=== PATIENT | female | born 1975 | race Caucasian/White ===

== ENCOUNTER 2016-08-30 14:16 | Emergency (ER) | payer OTHER ==
[~2016-08-30] VITALS: Ht 162.6 cm; Wt 65.8 kg
[~2016-08-30 14:16] MED LIST: A/B OTIC 54 MG/15 ML OT; FIORICET 325 MG1 TAB PO; NASONEX0.05 MG/Ac INH; PANTOPRAZOLE SO40 MG PO; PHENERGAN25 M1 PO; PREDNISONE50 MG PO; YAZ 3 MG-0.02 M1 TAB PO; ZITHROMAX Z-PA250 M1 PO; ZOFRAN4 M1 PO; ZOVIRAX400 MG PO
--- NOTE | 2016-08-30 14:37 | ED GENERAL ADULT ---
History of Present Illness General Chief Complaint: Upper Respiratory Sx/Fever Stated Complaint: UPPER RESPITORY ISSUE / SMITH Source: patient, family, old records Exam Limitations: no limitations Vital Signs & Intake/Output Vital Signs & Intake/Output Vital Signs Date Time Temp Pulse Resp B/P Pulse O2 O2 Flow FiO2 Ox Delivery Rate 08/30 1552 98.1 72 18 128/70 98 Room Air 08/30 1520 96 08/30 1422 97.7 73 20 134/88 98 Room Air ED Intake and Output 08/31 0000 08/30 1200 Intake Total 0 Output Total Balance 0 Intake, Oral 0 Patient 145 lb Weight Allergies Coded Allergies: shellfish derived (Severe, ANAPHYLAXIS 10/17/15) Penicillins (Intermediate, YEAST INFECTIONS 10/17/15) codeine (Intermediate, VOMITING 10/17/15) ibuprofen (GI ISSUES 08/30/16) Reconcile Medications Benzonatate 200 MG CAPSULE 1 CAP PO TID PRN cough Gabapentin 400 MG CAPSULE 1 CAP PO BID NEUROPATHY (Reported) Methylprednisolone. (Medrol) 4 MG TAB.DS.PK 1 DP PO AD breathing Pantoprazole Sodium 40 MG TABLET.DR 1 TAB PO DAILY GI (Reported) Sumatriptan Succinate (Imitrex) 50 MG TABLET 1 TAB PO AD PRN HEADACHE ( Reported) Triage Note: PT TO ED C/O URI S/S X 1 MONTH. PT HAS BEEN ON 2 ABX'S AND AN INHALER AND IS NOT FEELING BETTER. PT ALSO C/O HEADACHE. PT STATES SHE HAS "OCCIPITAL NEURALGIA" AND COUGHING EXACERBATES HER CONDITION. C/O STABBING PAIN TO HEAD. Triage Nurses Notes Reviewed? yes : No Patient currently breastfeeds: No HPI: PATIENT IS A 41-YEAR-OLD FEMALE PRESENTS COMPLAINING OF occipital headache and cough. Patient reports she has had a cough and chest congestion for approximately one month. Patient has been on azithromycin and ofloxacin with no improvement. Cough initially had sputum production, now patient reports that she feels chest congestion but she is not able to cough anything up. Patient has not had any chest imaging for her symptoms previously. Patient was placed on the left ofloxacin last week. Patient has been using albuterol and Mucinex with no improvement. Patient reports that the cough is causing her occipital neuralgia pain to exacerbate. Patient takes Topamax and sumatriptan which have not been providing any relief. Pain is a sharp pain consistent with her chronic headache pain exacerbated by cough. Patient denies fevers, chills, chest pain. (JR MATTA) Past History Travel History Traveled to [place] past 21 day No Medical History Any Pertinent Medical History? 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 No (JR MATTA) Review of Systems Review of Systems Constitutional: Denies: chills, fever. EENTM: Reports: nasal congestion. Respiratory: Reports: cough, short of breath, sputum production, wheezing. Cardiovascular: Denies: chest pain. GI: Denies: abdominal pain. Musculoskeletal: Reports: no symptoms. Skin: Reports: no symptoms. Neurological/Psychological: Reports: headache. Hematologic/Endocrine: Reports: no symptoms. Immunologic/Allergic: Reports: no symptoms. (JR MATTA) Physical Exam Physical Exam General Appearance: well developed/nourished, alert, awake Head: atraumatic, normal appearance Eyes: Bilateral: normal appearance, PERRL, EOMI. Ears, Nose, Throat: hearing grossly normal Neck: normal inspection, supple, full range of motion Respiratory: mild diffuse expiratory wheezing and congestion. Cardiovascular: regular rate/rhythm (no murmur) Back: normal inspection, normal range of motion Extremities: normal inspection, normal capillary refill, normal range of motion, no edema Neurologic/Psych: no motor/sensory deficits, awake, alert, oriented x 3, normal gait, normal mood/affect, pin cleaner II-XII nml as tested Skin: intact, normal color, warm/dry Lymphatic: no anterior cervical kelley Core Measures ACS in differential dx? No CVA/TIA Diagnosis: No Severe Sepsis Present: No Septic Shock Present: No (JR MATTA) Progress Differential Diagnoses I considered the following diagnoses in my evaluation of the patient: Bronchitis , pneumonia, postinfectious bronchospasm, CHF, pulmonary embolism, migraines, occipital neuralgia Plan of Care: Orders Procedure Date/time Status XRY-CHEST XRAY, PA AND LATERAL 08/30 1446 Active On re-exam patient reports improvement in breathing after nebulizer treatment and headache gradually improving. Headache is consistent with her previous headaches. Patient has had extensive outpatient testing regarding her headaches. No acute neurologic abnormalities. Labs and neuroimaging deferred. Results of x-ray discussed with patient. Appears stable for discharge and outpatient follow up. (JR MATTA) Diagnostic Imaging: Viewed by Me: Radiology Read. Discussed w/RAD: Radiology Read. Radiology Impression: PATIENT: MEEAT MONK PRESENT AGE: 41 PATIENT ACCOUNT NO: [id number] : 75 LOCATION: [facility] ORDERING PHYSICIAN: JR BRIAN SERVICE DATE: 08/30/16-1446 EXAM TYPE: RAD - XRY-CHEST XRAY, PA AND LATERAL EXAMINATION: XR CHEST CLINICAL INFORMATION: Cough and sputum production. COMPARISON: Chest x-ray 06/12/2014. TECHNIQUE: PA and lateral views of the chest were obtained. FINDINGS: The lungs are well-expanded and clear without focal airspace consolidation. No pleural effusions or pneumothoraces are identified. Cardiomediastinal contours are within normal limits. Soft tissues are unremarkable. No acute osseous abnormality is identified. IMPRESSION: No acute cardiopulmonary abnormality. DICTATED BY: HAKEEM RICHARDSON MD DATE/TIME DICTATED:08/30/161533 UNIFORM ATTENDANT:CASSANDRA DATE/TIME TRANSCRIBED:08/30/161533 CONFIDENTIAL, DO NOT COPY WITHOUT APPROPRIATE AUTHORIZATION. <Electronically signed in Other Vendor System> SIGNED BY: HAKEEM RICHARDSON MD 08/30/161537 Initial ED EKG: none (JR MATTA) Departure Departure Time of Disposition: 1546 Disposition: HOME OR SELF CARE Condition: Stable Clinical Impression Primary Impression: Bronchospasm Secondary Impressions: Occipital neuralgia Qualifiers: Laterality: unspecified laterality Qualified Code: M54.81 - Occipital neuralgia Referrals: DANNY HUFF (PCP/Family) Additional Instructions: Follow-up with your primary care provider within one week for further evaluation. Call in the morning for appointment. Return to the emergency department breathing worsening or worsening of symptoms. Departure Forms: Customer Survey General Discharge Information Prescriptions: Current Visit Scripts Methylprednisolone. (Medrol) 1 DP PO AD #1 DP Benzonatate 1 CAP PO TID PRN cough #30 CAP (JR MATTA) PA/SIGNALS ANALYST Co-Sign Statement Statement: ED Attending supervision documentation- [] I saw and evaluated the patient. I have also reviewed all the pertinent lab results and diagnostic results. I agree with the findings and the plan of care as documented in the PA's/SIGNALS ANALYST's documentation. [X] I have reviewed the ED Record and agree with the PA's/SIGNALS ANALYST's documentation. [] Additions or exceptions (if any) to the PAs/SIGNALS ANALYST's note and plan are summarized below: [] (BRANDT MORENO,MARISSA) Critical Care Note Critical Care Note Critical Care Time: non-applicable (JR MATTA)
[2016-08-30] MEDS ORDERED: GABAPENTIN400 M2 PO (14:49)
[2016-08-30] MEDS ORDERED: IMITREX50 M1 PO (14:49)
[2016-08-30] MEDS ORDERED: PANTOPRAZOLE SO40 M1 PO (14:50)
--- NOTE | 2016-08-30 15:38 | RADIOLOGY REPORT ---
EXAMINATION: XR CHEST CLINICAL INFORMATION: Cough and sputum production. COMPARISON: Chest x-ray 06/12/2014. TECHNIQUE: PA and lateral views of the chest were obtained. FINDINGS: The lungs are well-expanded and clear without focal airspace consolidation. No pleural effusions or pneumothoraces are identified. Cardiomediastinal contours are within normal limits. Soft tissues are unremarkable. No acute osseous abnormality is identified. IMPRESSION: No acute cardiopulmonary abnormality.
[2016-08-30] MEDS ORDERED: BENZONATATE200 M1 PO (15:46)
[2016-08-30] MEDS ORDERED: MEDROL4 M2 PO (15:46)
[2016-08-30 15:52] VITALS: BP 128/70
== END 2016-08-30 15:53 ==
LOC: ERH 14:16
DX: J98.01 Acute bronchospasm (principal); M54.81 Occipital neuralgia; Z87.891 Personal history of nicotine dependence
CPT/HCPCS: 1263; 96374; 96375; J1200; J1885; J2550; J2930

== ENCOUNTER 2016-10-20 10:50 | Emergency (ER) | payer OTHER ==
[~2016-10-20] VITALS: Ht 162.6 cm; Wt 65.8 kg
[~2016-10-20 10:50] MED LIST changes: +BENZONATATE200 M1 PO; +GABAPENTIN400 M2 PO; +IMITREX50 M1 PO; +MEDROL4 M2 PO; +PANTOPRAZOLE SO40 M1 PO
--- NOTE | 2016-10-20 11:26 | ED HEADACHE COMPLAINT ---
History of Present Illness General Chief Complaint: Headache Stated Complaint: NAUSEA, SMITH FOR 5 DAYS Source: patient, old records Exam Limitations: no limitations Vital Signs & Intake/Output Vital Signs & Intake/Output Vital Signs Date Time Temp Pulse Resp B/P Pulse O2 O2 Flow FiO2 Ox Delivery Rate 10/20 1251 97.7 68 18 125/73 98 Room Air 10/20 1206 Room Air 10/20 1109 96.4 89 18 141/90 100 Room Air Allergies Coded Allergies: shellfish derived (Severe, ANAPHYLAXIS 10/17/15) Beta-Blockers (Beta-Adrenergic Bloc (Intermediate, DROPS PRESSURE 10/20/16) Penicillins (Intermediate, YEAST INFECTIONS 10/17/15) codeine (Intermediate, VOMITING 10/17/15) ibuprofen (GI ISSUES 08/30/16) Reconcile Medications Eletriptan HBr (Relpax) 40 MG TABLET 1 TAB PO ONCE PRN HEADACHE MAY REPEAT 1 DOSE 2 HOURS AFTER INITIAL DOSE IF SYMPTOMS PERSIST Gabapentin 400 MG CAPSULE 1 CAP PO BID NEUROPATHY (Reported) Pantoprazole Sodium 40 MG TABLET.DR 1 TAB PO DAILY GI (Reported) Sumatriptan Succinate (Imitrex) 50 MG TABLET 1 TAB PO AD PRN HEADACHE ( Reported) Triage Note: C/O HEADACHE X 5 DAYS. STATES SHE HAS OCCIPITAL NEURALGIA AND HAS OCCASIONAL FLARE-UPS. HAS APPOINTMENT WITH HER PMD TOMORROW. Triage Nurses Notes Reviewed? yes : No Patient currently breastfeeds: No HPI: Patient is a 41-year-old female presents complaining of a pressure/pounding headache for the past 5 days. Headache is consistent with patient's previous headaches which she has had extensive workup and was diagnosed with occipital neuralgias. Patient has taken her Imitrex today with no improvement. Headaches is currently severe, worsens with movement of her head and right upper extremity. Intermittent nausea. 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 (JORGE ALBERTO BRIAN,JR) Past History Travel History Traveled to [place] past 21 day No Medical History Any Pertinent Medical History? 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 No (JR MATTA) Review of Systems Review of Systems Constitutional: Denies: chills, fever. Eyes: Denies: blindness, blurred vision. Ears, Nose, Throat, Mouth: Reports: no symptoms. Respiratory: Denies: cough, short of breath. Cardiovascular: Denies: chest pain. Gastrointestinal/Abdominal: Reports: nausea. Denies: abdominal pain. Genitourinary: Reports: no symptoms. Musculoskeletal: Reports: neck pain. Skin: Reports: no symptoms. Neurological/Psychological: Reports: see HPI. Hematologic/Endocrine: Reports: no symptoms. Endocrine: Reports: no symptoms. Immunologic/Allergic: Reports: no symptoms. (JR MATTA) Physical Exam Physical Exam General Appearance: well developed/nourished, alert, awake Head: atraumatic, normal appearance Eyes: Bilateral: normal appearance, PERRL, EOMI. Ears, Nose, Throat: normal pharynx, normal ENT inspection, hearing grossly normal Neck: normal inspection, supple, full range of motion, mild paraspinal tenderness Respiratory: normal breath sounds, chest non-tender, no respiratory distress, lungs clear Cardiovascular: regular rate/rhythm Back: normal inspection, normal range of motion Extremities: normal inspection, normal capillary refill, normal range of motion, no edema Psychiatric: awake, alert, oriented x 3 Cranial Nerves: normal hearing, normal speech, PERRL Coordination/Gait: normal gait Motor/Sensory: no motor/sensory deficits Skin: intact, normal color, warm/dry Lymphatic: no anterior cervical kelley Core Measures Severe Sepsis Present: No Septic Shock Present: No (JR MATTA) Progress Differential Diagnosis: cluster SMITH, IC mass/tumor, intracranial Hem., meningitis , migraine SMITH, musculoskeletal pain, sinusitis, subarach. Hem., tension SMITH, temporal arteritis, viral cephalgia, occipital neuralgia Plan of Care: Current Medications Sig/Elizabeth Start time Last Medication Dose Stop Time Status Admin Diphenhydramine HCl 25 MG ONCE ONE 10/20 1200 AC (Benadryl) 10/20 1201 Ketorolac 30 MG ONCE ONE 10/20 1200 UNVr Tromethamine 10/20 1201 (Toradol) Methylprednisolone 125 MG ONCE ONE 10/20 1200 AC (Solu Medrol) 10/20 1201 Promethazine HCl 25 MG ONCE ONE 10/20 1200 AC (Phenergen) 10/20 1201 10/20/2016 1:14:15 PM: Patient reports that symptoms are gradually improving. Patient has an appointment with her primary care provider tomorrow morning. Requesting a prescription for Relpax. Discussed with patient the interaction of Relpax and her Imitrex. Patient reports that she has not taken her Imitrex since Wednesday. (JR MATTA) Departure Departure Time of Disposition: 1314 Disposition: HOME OR SELF CARE Condition: Stable Clinical Impression Primary Impression: Occipital neuralgia Qualifiers: Laterality: unspecified laterality Qualified Code: M54.81 - Occipital neuralgia Referrals: TOMI MENA,DANNY Matthews (PCP/Family) Additional Instructions: Follow up with your primary care provider tomorrow as scheduled. Return to the emergency department if worsening of symptoms Departure Forms: Customer Survey General Discharge Information Prescriptions: Current Visit Scripts Eletriptan HBr (Relpax) 1 TAB PO ONCE PRN HEADACHE #15 TAB MAY REPEAT 1 DOSE 2 HOURS AFTER INITIAL DOSE IF SYMPTOMS PERSIST (JR MATTA) PA/BUSINESS CONTROL MANAGER Co-Sign Statement Statement: ED Attending supervision documentation- [] I saw and evaluated the patient. I have also reviewed all the pertinent lab results and diagnostic results. I agree with the findings and the plan of care as documented in the PA's/BUSINESS CONTROL MANAGER's documentation. [X] I have reviewed the ED Record and agree with the PA's/BUSINESS CONTROL MANAGER's documentation. [] Additions or exceptions (if any) to the PAs/BUSINESS CONTROL MANAGER's note and plan are summarized below: [] (CRISTIAN MORENO,TERESA Gamez)
[2016-10-20 12:51] VITALS: BP 125/73
[2016-10-20] MEDS ORDERED: RELPAX40 M1 PO (13:17)
== END 2016-10-20 13:35 ==
LOC: ERH 10:50
DX: M54.81 Occipital neuralgia (principal); R11.0 Nausea
CPT/HCPCS: 96374; 96375; J1200; J1885; J2550; J2930

== ENCOUNTER 2016-11-05 09:22 | Emergency (ER) | payer OTHER ==
[~2016-11-05] VITALS: Ht 162.6 cm; Wt 70.3 kg
[~2016-11-05 09:22] MED LIST changes: +RELPAX40 M1 PO
--- NOTE | 2016-11-05 09:47 | ED UPPER/LOWER EXTREMITY COMPL ---
History of Present Illness General Chief Complaint: Lower Extremity Injury Stated Complaint: FELL ON ICE, INJURY TO L KNEE Source: patient Exam Limitations: no limitations Vital Signs & Intake/Output Vital Signs & Intake/Output Vital Signs Date Time Temp Pulse Resp B/P Pulse O2 O2 Flow FiO2 Ox Delivery Rate 11/05 0926 97.1 100 18 137/80 99 Room Air Allergies Coded Allergies: shellfish derived (Severe, ANAPHYLAXIS 10/17/15) Beta-Blockers (Beta-Adrenergic Bloc (Intermediate, DROPS PRESSURE 10/20/16) Penicillins (Intermediate, YEAST INFECTIONS 10/17/15) codeine (Intermediate, VOMITING 10/17/15) ibuprofen (GI ISSUES 08/30/16) Reconcile Medications Diclofenac Sodium 75 MG TABLET.DR 1 TAB PO BID PRN PAIN take with food Eletriptan HBr (Relpax) 40 MG TABLET 1 TAB PO ONCE PRN HEADACHE MAY REPEAT 1 DOSE 2 HOURS AFTER INITIAL DOSE IF SYMPTOMS PERSIST Gabapentin 400 MG CAPSULE 1 CAP PO BID NEUROPATHY (Reported) Pantoprazole Sodium 40 MG TABLET.DR 1 TAB PO DAILY GI (Reported) Sumatriptan Succinate (Imitrex) 50 MG TABLET 1 TAB PO AD PRN HEADACHE ( Reported) Triage Note: PT STATES THAT SHE SLIPPED ON ICE LAST PM AND HAS BEEN HAVING L KNEE PAIN. TOOK TYLENOL FOR THE PAIN Triage Nurses Notes Reviewed? yes : No Patient currently breastfeeds: No HPI: Patient presents for evaluation of a left knee injury that occurred abruptly last night after slipping on the ice. She states that she hurt the knee again today after slipping on the ice getting her children on the bus. She states that last night she heard a loud pop come from the knee. She denies any associated ecchymoses and applied ice to the area overnight. She tried using a knee strap/brace without improvement. The pain is a sharp medially located pain that gets worse with palpation and attempts to ambulate. The pain is described as moderate to severe in intensity. She does get occasional radiation of the pain up the medial aspect of the left thigh. She otherwise denies any other injury at this time. There was no loss of consciousness. Past History Travel History Traveled to [place] past 21 day No Medical History Any Pertinent Medical History? 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 No Review of Systems Review of Systems Constitutional: Reports: no symptoms. EENTM: Reports: no symptoms. Respiratory: Reports: no symptoms. Cardiovascular: Reports: no symptoms. Gastrointestinal/Abdominal: Reports: no symptoms. Genitourinary: Reports: no symptoms. Musculoskeletal: Reports: see HPI. Skin: Reports: no symptoms. Neurological/Psychological: Reports: no symptoms. Hematologic/Endocrine: Reports: no symptoms. Immunological: Reports: no symptoms. All Other Systems: Reviewed and Negative Physical Exam Physical Exam General Appearance: see below Comments: Gen.: Well-nourished, well-developed, no acute respiratory distress. Head: Normocephalic, atraumatic. Eyes: Normal inspection bilaterally Ears: Normal inspection bilaterally Nose: Normal inspection, nasal cannula in place Throat/mouth : Moist mucosa Neck: Supple, full range of motion, no goiter Heart: Regular rate and rhythm Lungs: Quiet respirations Back: Normal range of motion Extremities: Left knee: Mild inferior soft tissue swelling and tenderness over the medial collateral ligaments. There is no ecchymoses noted. The knee is otherwise stable on exam. The distal left lower extremity is neurovascularly intact. Neurologic: Cranial nerves grossly intact, speech is clear Skin: warm and dry Psychiatric: Calm, cooperative, no apparent delusions or hallucinations Progress Differential Diagnosis: dislocation, fracture, sprain Plan of Care: Orders Procedure Date/time Status XRY-KNEE COMPLETE LEFT 11/05 945 Active Diagnostic Imaging: Viewed by Me: Radiology Read. Discussed w/RAD: Radiology Read. Radiology Impression: PATIENT: MEETA MONK PRESENT AGE: 41 PATIENT ACCOUNT NO: [id number] : 75 LOCATION: [facility] ORDERING PHYSICIAN: BRENT REDD MD SERVICE DATE: 11/05/16 EXAM TYPE: RAD - XRY-KNEE COMPLETE LEFT EXAMINATION: XR KNEE, LEFT CLINICAL INFORMATION: Status post fall with medial tenderness COMPARISON: None TECHNIQUE: Four views of the left knee. FINDINGS: There is no fracture, dislocation, or knee joint effusion. Joint spaces are maintained. The soft tissues are unremarkable. IMPRESSION: No fracture or dislocation. DICTATED BY: ABBY AYALA MD DATE/TIME DICTATED:11/05/161037 BOILER TUBE BLOWER:CASSANDRA DATE/TIME TRANSCRIBED:1037 CONFIDENTIAL, DO NOT COPY WITHOUT APPROPRIATE AUTHORIZATION. < Electronically signed in Other Vendor System> SIGNED BY: ABBY AYALA MD 11/05/16 1042 Departure Departure Disposition: HOME OR SELF CARE Condition: Stable Clinical Impression Primary Impression: Sprain of medial collateral ligament of left knee, initial encounter Qualifiers: Encounter type: initial encounter Qualified Code: S83.412A - Sprain of medial collateral ligament of left knee, initial encounter Referrals: DANNY HUFF (PCP/Family) Additional Instructions: Diclofenac as prescribed for swelling or pain. Use the knee immobilizer as necessary. Activity as tolerated. Continue ice and elevation over the next 24 hours. Follow-up with your primary care doctor for reevaluation in 2 weeks if not improving. Return immediately if any sudden worsening. Please note that there might be incidental findings in your evaluation that are unrelated to the current emergency department visit. Please notify your primary care doctor about this emergency department visit in order to obtain and review all of the testing performed so that these incidental findings can be monitored as needed. If you had an x-ray performed, please understand that some fractures may not be seen on the initial set of x-rays. If your symptoms persist you might need a repeat set of x-rays to check for such a fracture. If you had a laceration evaluated, please understand that foreign bodies such as glass or wood may not be visible to the naked eye or on plain x-rays. If the wound becomes red, swollen, increasingly more painful or if there is any drainage from the wound, please have it reevaluated by a physician for the possibility of a retained foreign body. Thank you for choosing the [facility] Emergency Department for your care. It was a pleasure to serve you today. Brent Redd M.D. [facility] Departure Forms: Customer Survey General Discharge Information Prescriptions: Current Visit Scripts Diclofenac Sodium 1 TAB PO BID PRN PAIN #14 TAB take with food
--- NOTE | 2016-11-05 10:42 | RADIOLOGY REPORT ---
EXAMINATION: XR KNEE, LEFT CLINICAL INFORMATION: Status post fall with medial tenderness COMPARISON: None TECHNIQUE: Four views of the left knee. FINDINGS: There is no fracture, dislocation, or knee joint effusion. Joint spaces are maintained. The soft tissues are unremarkable. IMPRESSION: No fracture or dislocation.
[2016-11-05] MEDS ORDERED: DICLOFENAC SODI75 M2 PO (11:18)
[2016-11-05 11:44] VITALS: BP 118/82
== END 2016-11-05 11:44 ==
LOC: ERH 09:22
DX: S83.412A Sprain of medial collateral ligament of left knee, initial encounter (principal); W00.0XXA Fall on same level due to ice and snow, initial encounter
CPT/HCPCS: 73562-LT

== ENCOUNTER 2017-02-10 22:16 | Emergency (ER) | payer OTHER ==
[~2017-02-10 22:16] MED LIST changes: +DICLOFENAC SODI75 M2 PO
--- NOTE | 2017-02-10 23:30 | ED HEADACHE COMPLAINT ---
History of Present Illness General Chief Complaint: Headache Stated Complaint: OCCIPITAL NEURALGIA MIGRAINE, HOME MEDS NO HELP Source: patient Exam Limitations: no limitations Vital Signs & Intake/Output Vital Signs & Intake/Output Vital Signs Date Time Temp Pulse Resp B/P B/P Pulse O2 O2 Flow FiO2 Mean Ox Delivery Rate 02/11 0103 72 18 136/76 98 Room Air 02/10 2229 96.9 88 22 148/90 98 ED Intake and Output 02/11 0000 02/10 1200 Intake Total 50 Output Total Balance 50 Intake, IV 50 Allergies Coded Allergies: shellfish derived (Severe, ANAPHYLAXIS 10/17/15) Beta-Blockers (Beta-Adrenergic Bloc (Intermediate, DROPS PRESSURE 10/20/16) Penicillins (Intermediate, YEAST INFECTIONS 10/17/15) codeine (Intermediate, VOMITING 10/17/15) ibuprofen (GI ISSUES 08/30/16) Reconcile Medications Diclofenac Sodium 75 MG TABLET.DR 1 TAB PO BID PRN PAIN take with food Eletriptan HBr (Relpax) 40 MG TABLET 1 TAB PO ONCE PRN HEADACHE MAY REPEAT 1 DOSE 2 HOURS AFTER INITIAL DOSE IF SYMPTOMS PERSIST Gabapentin 400 MG CAPSULE 1 CAP PO BID NEUROPATHY (Reported) Methylprednisolone. (Medrol) 4 MG TAB.DS.PK 1 DP PO AD MIGRAINE HEADACHE 6 on day 1 then reduce by one tablet daily until gone Pantoprazole Sodium 40 MG TABLET.DR 1 TAB PO DAILY GI (Reported) Sumatriptan Succinate (Imitrex) 50 MG TABLET 1 TAB PO AD PRN HEADACHE ( Reported) Triage Note: PER PT OCCIPITAL NEURALGIA AND HOME MEDS NOT WORKING, COME HERE TO GET A COMBINATION OF IV STUFF, UNSURE OF WHAT IT IS BUT THE STEROIDS REALLY HELPED LAST TIME Triage Nurses Notes Reviewed? yes Onset: Gradual Duration: week(s): Timing: recent history Quality/Severity: moderate Head Injury Location: occipital Modifying Factors: Improves With: medication. Associated Symptoms: photophobia : No Patient currently breastfeeds: No HPI: 41 yo woman with occipital neuralgia presents with recurrence of her occipital headache for the past week. Her last episode which required treatment in the ED was in September 2016. "They gave me some steroids and other medications and it really worked... I went home with a medrol dose pack." She notes photophobia, nausea, but no fever, vision changes, meningismus. She took her regular medications which did not ansley her symptoms. She is otherwise well. Past History Travel History Traveled to [place] past 21 day No Medical History Any Pertinent Medical History? 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 No Review of Systems Review of Systems Constitutional: Reports: no symptoms. Eyes: Reports: no symptoms. Ears, Nose, Throat, Mouth: Reports: no symptoms. Respiratory: Reports: no symptoms. Cardiovascular: Reports: no symptoms. Gastrointestinal/Abdominal: Reports: no symptoms. Genitourinary: Reports: no symptoms. Musculoskeletal: Reports: no symptoms. Skin: Reports: no symptoms. Neurological/Psychological: Reports: no symptoms. Hematologic/Endocrine: Reports: no symptoms. Endocrine: Reports: no symptoms. Immunologic/Allergic: Reports: no symptoms. All Other Systems: Reviewed and Negative Physical Exam Physical Exam General Appearance: well developed/nourished, mild distress Head: atraumatic, normal appearance Eyes: Bilateral: normal appearance. Ears, Nose, Throat: normal pharynx, normal ENT inspection Neck: normal inspection, supple, full range of motion, no midline tenderness, paracervical muscle spasm to palpation. Respiratory: normal breath sounds, chest non-tender, no respiratory distress Cardiovascular: regular rate/rhythm Gastrointestinal: normal bowel sounds, soft, non-tender, no organomegaly Extremities: normal inspection, normal capillary refill, normal range of motion, no edema Cranial Nerves: normal hearing, normal speech, PERRL Coordination/Gait: normal finger to nose, normal gait Motor/Sensory: no motor/sensory deficits Reflexes: 1+: bicep (R), bicep (L). Skin: intact, normal color, warm/dry Core Measures Severe Sepsis Present: No Septic Shock Present: No Progress Differential Diagnosis: cluster SMITH, migraine SMITH, tension SMITH, occipital migraine vs other. Plan of Care: Current Medications Sig/Elizabeth Start time Last Medication Dose Stop Time Status Admin Ondansetron HCl 4 MG ONCE ONE 02/10 2345 CAN (Zofran) 06/21 2346 Departure Departure Disposition: HOME OR SELF CARE Condition: Stable Clinical Impression Primary Impression: Headache Referrals: TOMI MENA,DANNY Matthews (PCP/Family) Departure Forms: Customer Survey General Discharge Information Prescriptions: Current Visit Scripts Methylprednisolone. (Medrol) 1 DP PO AD #1 DP 6 on day 1 then reduce by one tablet daily until gone Comments pt given supportive medications, safe for discharge.
[2017-02-10] MEDS ORDERED: MEDROL4 M2 PO (23:57)
[2017-02-11 01:03] VITALS: BP 136/76
== END 2017-02-11 01:14 ==
LOC: ERH 22:16
DX: R51 Headache (principal)
CPT/HCPCS: 96374; 96375; J1200; J1885; J2550; J2930

== ENCOUNTER 2017-10-14 11:51 | Emergency (ER) | payer OTHER ==
[~2017-10-14] VITALS: Ht 162.6 cm; Wt 72.6 kg
[~2017-10-14 11:51] MED LIST changes: +ACYCLOVIR400 M1 PO; +CELECOXIB200 M1 PO; +FEXMID7.5 MG PO; +IMITREX25 M1 PO; +MULTI-DAY VITA1 EACH PO
--- NOTE | 2017-10-14 16:58 | ED HEADACHE COMPLAINT ---
History of Present Illness General Chief Complaint: General Adult Stated Complaint: OCCIPITAL NEURALGIA FLAREUP Source: patient Exam Limitations: no limitations Vital Signs & Intake/Output Vital Signs & Intake/Output Vital Signs Date Time Temp Pulse Resp B/P B/P Pulse O2 O2 Flow FiO2 Mean Ox Delivery Rate 10/14 1837 80 16 140/105 100 Room Air 10/14 1218 96.8 100 20 135/85 98 Room Air Allergies Coded Allergies: shellfish derived (Severe, ANAPHYLAXIS 10/17/15) Beta-Blockers (Beta-Adrenergic Bloc (Intermediate, DROPS PRESSURE 10/20/16) NSAIDS (Non-Steroidal Anti-Inflamma (ULCERS - COLITIS 03/10/17) Penicillins (Intermediate, YEAST INFECTIONS 10/17/15) codeine (Intermediate, VOMITING 10/17/15) Reconcile Medications Acyclovir 400 MG TABLET 1 TAB PO PRN ANTIVIRAL (Reported) Celecoxib 200 MG CAPSULE 1 CAP PO BID PRN ARTHRITIS (Reported) Cyclobenzaprine HCl (Fexmid) 7.5 MG TABLET 1 TAB PO BID PRN MUSCLE SPASMS ( Reported) Gabapentin 400 MG CAPSULE 1 CAP PO BID NEUROPATHY (Reported) Methylprednisolone. (Medrol) 4 MG TAB.DS.PK 1 DP PO AD headache 6 on day 1 then reduce by one tablet daily until gone Methylprednisolone. (Medrol) 4 MG TAB.DS.PK 1 DP PO AD MIGRAINE HEADACHE 6 on day 1 then reduce by one tablet daily until gone Methylprednisolone. (Medrol) 4 MG TAB.DS.PK 1 DP PO AD Occipital Neuralgia 6 on day 1 then reduce by one tablet daily until gone Multivitamin (Multi-Day Vitamins) 1 EACH TABLET 1 TAB PO DAILY SUPPLEMENT ( Reported) Pantoprazole Sodium 40 MG TABLET.DR 1 TAB PO DAILY GI (Reported) Sumatriptan Succinate (Imitrex) 50 MG TABLET 1 TAB PO AD PRN HEADACHE ( Reported) Sumatriptan Succinate (Imitrex) 25 MG TABLET 1 TAB PO TID PRN MIGRAINE Triage Note: PT TO ED FOR FLARE UP OF OCCIPITAL NEURALGIA. "I'M HERE FOR MY EMERGENCY COCKTAIL, IT SHOULD BE IN MY CHART". Triage Nurses Notes Reviewed? yes Onset: Gradual Duration: day(s): (2) Timing: multiple episodes today Quality/Severity: severe : No Patient currently breastfeeds: No HPI: 42 yo F presents to the ED with complains of flare up of her occipital neuralgia. The patient states she has been diagnosed with the condition and normally functions with a baseline headache of 5/10 in severity. She has episodes of flare up which responds to a concoction of nausea/pain meds and steroids. She describes her headache as sharp, stabbing, radiating from the back of her head to the front and 8/10 in severity. She denies any aggravating or relieving factors. States she has a history of cluster and migraine headaches as well. (Chet Randhawa MD) Past History Travel History Traveled to [place] past 21 day No Medical History Any Pertinent Medical History? 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 No (Chet Randhawa MD) Review of Systems Review of Systems Constitutional: Denies: chills, fever. Respiratory: Denies: cough, short of breath. Cardiovascular: Denies: chest pain, palpitations. Gastrointestinal/Abdominal: Reports: nausea. Denies: abdominal pain. Genitourinary: Reports: no symptoms. Musculoskeletal: Reports: no symptoms. Skin: Reports: no symptoms. Neurological/Psychological: Reports: headache. (Chet Randhawa MD) Physical Exam Physical Exam General Appearance: well developed/nourished, alert, awake, mild distress Head: atraumatic, normal appearance, sinus tenderness Eyes: Bilateral: normal appearance. Respiratory: normal breath sounds, chest non-tender, lungs clear Cardiovascular: regular rate/rhythm Gastrointestinal: soft, non-tender Cranial Nerves: normal hearing, normal speech, PERRL Motor/Sensory: no motor/sensory deficits Core Measures Sepsis Present: No Sepsis Focused Exam Completed? No (Chet Randhawa MD) Progress Differential Diagnosis: cluster SMITH, migraine SMITH, occipital neuralgia Plan of Care: Current Medications Sig/Elizabeth Start time Last Medication Dose Stop Time Status Admin Diphenhydramine HCl 50 MG ONCE ONE 02/22 1700 UNVr (Benadryl) 10/14 1700 Ketorolac 30 MG ONCE ONE 10/14 1699 UNVr Tromethamine 10/14 1700 (Toradol) Methylprednisolone 60 MG ONCE ONE 10/14 1699 UNVr (Solu Medrol) 10/14 1700 Promethazine HCl 12.5 MG ONCE ONE 10/14 1699 UNVr (Phenergen) 10/14 1700 (Sydnee MORENO,Chet) Departure Departure Time of Disposition: 1857 Disposition: HOME OR SELF CARE Condition: Stable Clinical Impression Primary Impression: Occipital neuralgia Qualifiers: Laterality: bilateral Qualified Code: M54.81 - Occipital neuralgia Referrals: Barbara GUERRA-KEVIN,Naseem Matthews (PCP/Family) Additional Instructions: Please follow up with your neurologist and primary care physician within one week of discharge. Please return to the ED for any worsening symptoms or concerns. Departure Forms: Customer Survey General Discharge Information Prescriptions: Current Visit Scripts Methylprednisolone. (Medrol) 1 DP PO AD #1 DP 6 on day 1 then reduce by one tablet daily until gone Methylprednisolone. (Medrol) 1 DP PO AD #1 DP 6 on day 1 then reduce by one tablet daily until gone (Sydnee MORENO,Chet) Resident Co-Sign Statement Statement: ED Attending supervision documentation- [X] I saw and evaluated the patient. I have also reviewed all the pertinent lab results and diagnostic results. I agree with the findings and the plan of care as documented in the Resident's documentation. [] I have reviewed the ED Record and agree with the Resident's documentation. [] Additions or exceptions (if any) to the Resident's note and plan are summarized below: [] (Ivania MORENO,Brent Levine)
[2017-10-14 18:37] VITALS: BP 140/105
[2017-10-14] MEDS ORDERED: MEDROL4 M2 PO ×2 (18:40→20:22)
== END 2017-10-14 19:01 ==
LOC: ERH 11:51
DX: M54.81 Occipital neuralgia (principal)
CPT/HCPCS: 96374; 96375; J1200; J1885; J2550; J2930

== ENCOUNTER 2017-11-15 10:43 | Emergency (ER) | payer OTHER ==
[~2017-11-15] VITALS: Ht 162.6 cm; Wt 74.8 kg
--- NOTE | 2017-11-15 12:14 | ED HEADACHE COMPLAINT ---
History of Present Illness General Chief Complaint: General Adult Stated Complaint: SMITH/DIZZINESS/+N Source: patient, old records Exam Limitations: no limitations Vital Signs & Intake/Output Vital Signs & Intake/Output Vital Signs Date Time Temp Pulse Resp B/P B/P Pulse O2 O2 Flow FiO2 Mean Ox Delivery Rate 11/15 1443 98.0 89 18 134/86 97 Room Air Room Air 11/15 1101 97.9 101 20 152/98 97 Room Air Allergies Coded Allergies: shellfish derived (Severe, ANAPHYLAXIS 10/17/15) Beta-Blockers (Beta-Adrenergic Bloc (Intermediate, DROPS PRESSURE 10/20/16) NSAIDS (Non-Steroidal Anti-Inflamma (ULCERS - COLITIS 03/10/17) Penicillins (Intermediate, YEAST INFECTIONS 10/17/15) codeine (Intermediate, VOMITING 10/17/15) Reconcile Medications Celecoxib 200 MG CAPSULE 1 CAP PO BID PAIN CONTROL (Reported) Cyclobenzaprine HCl (Fexmid) 7.5 MG TABLET 1 TAB PO BID PRN MUSCLE SPASMS ( Reported) Methylprednisolone. (Medrol) 4 MG TAB.DS.PK 1 DP PO AD pain 6 on day 1 then reduce by one tablet daily until gone Oxycodone HCl/Acetaminophen (Percocet 5-325 MG Tablet) 5 MG-325 MG TABLET 1 TAB PO BID PRN pain Pregabalin (Lyrica) 25 MG CAPSULE 1 CAP PO DAILY NEUROPATHY (Reported) Promethazine HCl 25 MG TABLET 1 TAB PO Q6P PRN nausea Sumatriptan Succinate 100 MG TABLET 1 TAB PO DAILY PRN HEADACHE (Reported) may repeat in 2 hours; do not exceed 200 mg in 24 hours Triage Note: PT STATES SHE HAS OCCIPITAL NEURALGIA AND AND SHE IS HAVING A FLARE UP. STATES SHE WAS ON GABAPENTIN FOR 18 MONTHS AND RECENTLY GOT SWITCHED TO LYRICA. PT STATES IT'S NOT WORKING FOR HER. STATES SHE HAS H/A, DIZZINESS AND NAUSEA Triage Nurses Notes Reviewed? yes Onset: Abrupt Duration: day(s): (2), constant Timing: recent history Quality/Severity: moderate, severe, achy, constant, pressure Severity Numbers: 6 Head Injury Location: occipital No Modifying Factors: none Associated Symptoms: nausea : No Patient currently breastfeeds: No HPI: 42 year old female with history of occipital neuralgia presents to the ER for evaluation complaining of an exacerbation of her occipital neuraligia for the past 2 days. Patient was recently changed 3 weeks ago offer her gabapentin to Lyrica by her neurologist however states that it is not helping and she does not like how this is making her feel. She is otherwise been taking Flexeril and [id number] pain medications without improvement. No recent fall or head trauma no blurry vision she reports some nausea however denies vomiting fever no chills Past History Travel History Traveled to [place] past 21 day No Medical History Any Pertinent Medical History? 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 No Review of Systems Review of Systems Constitutional: Reports: see HPI. Comments Review of systems: See HPI, All other systems negative. Constitutional, no chills no fever, HEENT: no sore throat no congestioN Cardiovascular: No chest pain Skin: no rashes, no change in skin Respiratory: No dyspnea no cough no sputum GI: nausea no vomiting : No dysuria Muscle skeletal: back pain,neck pain, Neurologic: ,headache Heme/endocrine: No bruising Physical Exam Physical Exam General Appearance: well developed/nourished, alert, awake Cranial Nerves: normal hearing, normal speech, PERRL Comments: Well-developed well-nourished person in no acute distress HEENT: Normal EENT exam; PERRL, EOMI, no nystagmus. HEAD is atraumatic. moist mucous membranes. Neck: Supple, normal range of motion without pain or tenderness Back: Full range of motion Cardiovascular: Regular rate and rhythms no murmurs Respiratory: No respiratory distress. Patient speaking in full complete sentences. Breath sounds clear to auscultation bilaterally: NO W/R/R Extremity: No edema, full range of motion of extremities, 5 out of 5 strength noted to bilateral upper and lower extremities Neuro: Alert oriented x3, motor sensory normal, cranial nerves II through XII grossly intact. There were no obvious focal neurologic abnormalities. Skin: No appreciable rash on exposed skin, skin is warm and dry. Psych: Mood and affect is normal, memory and judgment is normal. Core Measures Sepsis Present: No Sepsis Focused Exam Completed? No Progress Differential Diagnosis: IC mass/tumor, intracranial Hem., meningitis, migraine SMITH, musculoskeletal pain, sinusitis, subarach. Hem., tension SMITH, temporal arteritis, OCCIPITAL NEURALGIA Plan of Care: Current Medications Sig/Elizabeth Start time Last Medication Dose Stop Time Status Admin Sodium Chloride 1,000 ML BOLUS ONE 11/15 1245 AC (Normal Saline 0.9%) 11/15 1344 Patient medicated with fluids Toradol Phenergan which she's had before with improvement. She reports this feels similar to her previous exacerbations no recent trauma or fall imaging deferred On repeat evaluation patient reports to feeling improved and likely discharge advise close follow-up with her neurologist and primary care physician we'll send her home with Phenergan as well as a Medrol Dosepak which she states she's been prescribed in the past with significant improvement. Percocet will be provided for breakthrough pain. Return precautions were discussed at length she feels comfortable with plan Departure Departure Time of Disposition: 1417 Disposition: HOME OR SELF CARE Condition: Stable Clinical Impression Primary Impression: Occipital neuralgia Referrals: Barbara GUERRA-KEVIN,Naseem Matthews (PCP/Family) Bartolo MORENO,Marlyn Siddiqi Additional Instructions: Follow-up with your primary care physician and neurologist or neurologist affiliated with [facility] Dr. Mcfarland phenergan for nausea, medrol dose jerrod as directed. percocet for breakthrough pain-use caution as this may make you drowsy. Continue taking your medications as prescribed and return with any concerns. Departure Forms: Customer Survey General Discharge Information Prescriptions: Current Visit Scripts Methylprednisolone. (Medrol) 1 DP PO AD #1 DP 6 on day 1 then reduce by one tablet daily until gone Promethazine HCl 1 TAB PO Q6P PRN nausea #12 TAB Oxycodone HCl/Acetaminophen (Percocet 5-325 MG Tablet) 1 TAB PO BID PRN pain #10 TAB
[2017-11-15] MEDS ORDERED: LYRICA25 M1 PO (12:38)
[2017-11-15] MEDS ORDERED: SUMATRIPTAN SU100 M1 PO (12:38)
[2017-11-15] MEDS ORDERED: PERCOCET 5-3251 EACH PO (14:22)
[2017-11-15] MEDS ORDERED: PROMETHAZINE HC25 M3 PO (14:22)
[2017-11-15] MEDS ORDERED: MEDROL4 M2 PO (14:22)
[2017-11-15 14:43] VITALS: BP 134/86
== END 2017-11-15 14:44 ==
LOC: ERH 10:43
DX: M54.81 Occipital neuralgia (principal)
CPT/HCPCS: 96374; 96375; J1100; J1200; J1885; J2550